=== PATIENT | male | born 1970 | race Caucasian/White ===

== ENCOUNTER 2020-05-28 09:44 | Emergency (ER) | payer OTHER ==
[~2020-05-28] VITALS: Ht 185.4 cm; Wt 119.9 kg
--- NOTE | 2020-05-28 10:32 | REP ---
INDICATION: right pain and swelling. COMPARISON: None. TECHNIQUE: High-resolution bilateral scrotal sonography. FINDINGS: Bilateral high-resolution scrotal sonography demonstrates homogeneous testicular parenchyma. No intratesticular mass lesion is seen on either side. Right testis measures 4.2 x 2.3 x 2.7 cm. Left testicular dimensions are 4.3 x 2.3 x 2.7 cm. Doppler flow is preserved to both testes. Resistive indices are measured 0.49 on the right and 0.57 on the left. There is heterogeneous enlargement of the right epididymis. The right epididymis is hyperemic and the findings are compatible with epididymitis. There is a 0.4 cm cyst in the epididymis on the left. A small right-sided hydrocele is noted. No other abnormality. IMPRESSION: Findings compatible with right-sided epididymitis. High heterogeneous hyperemic enlargement of the right epididymis. No testicular lesion seen. Normal testicular Doppler flow. <Electronically signed by Jeffrey Cardenas > 05/28/20 [id number]
[2020-05-28] MEDS ORDERED: BACTRIM 160MG/800MG DS TAB PO ONE (10:50)
[2020-05-28] MEDS ORDERED: BACT800T5 PO (10:52)
[2020-05-28 11:19] VITALS: BP 139/86
[2020-05-28 13:15] LABS: CHLAMYDIA DNA AMPLIFICATION NEGATIVE (NEGATIVE); GC DNA AMPLIFICATION NEGATIVE (NEGATIVE)
== END 2020-05-28 11:20 | disposition home or self-care (01) ==
LOC: M ED 09:44
DX: N45.1 Epididymitis (principal)